=== PATIENT | male | born 1995 | race Caucasian/White ===

== ENCOUNTER 2017-10-05 12:55 | Emergency (ER) | payer OTHER ==
[~2017-10-05] VITALS: Ht 175.3 cm; Wt 65.8 kg
[~2017-10-05 12:55] MED LIST: CYCL10 PO; Mobic15 MG PO; NAPR500 PO; Naprosyn500 MG PO; OSEL75CA PO
== END 2017-10-05 14:20 | disposition home or self-care (01) ==
LOC: ER 12:55
DX: S90.32XA Contusion of left foot, initial encounter (principal); Z87.891 Personal history of nicotine dependence; W22.8XXA Striking against or struck by other objects, initial encounter
CPT/HCPCS: 73630; 99283

== ENCOUNTER → 2023-02-08 | Outpatient (CLI) | payer SELFPAY ==
[~2023-02-08] MED LIST changes: +Augmentin 875-1 EACH PO; +DOC250 PO; +OMEP20ER PO
[2023-02-11 00:08] LABS: HIV AB/P24 AG SCREEN Non Reactive (Non Reactive)
== END | disposition home or self-care (01) ==
LOC: LAB 10:48 → LAB SHORT 10:48
PROVIDERS: Physician Assistant
DX: Z20.9 Contact with and (suspected) exposure to unspecified communicable disease (principal)
CPT/HCPCS: 86592; 86695; 86696; 87389

== ENCOUNTER → 2023-02-08 | Outpatient (CLI) | payer SELFPAY ==
[2023-02-10 04:08] LABS: CHLAMYDIA TRACHOMATIS, NAA Positive (Negative)
== END ==
LOC: LAB SHORT 12:02 → LAB 12:02
PROVIDERS: Physician Assistant
DX: Z20.9 Contact with and (suspected) exposure to unspecified communicable disease (principal)
CPT/HCPCS: 87491; 87591

== ENCOUNTER 2023-10-15 06:16 | Emergency (ER) | payer OTHER ==
[~2023-10-15] VITALS: Ht 175.3 cm; Wt 70.3 kg
[2023-10-15 06:26] VITALS: BP 131/60
[2023-10-15] MEDS ORDERED: IBUP400 PO (07:12)
[2023-10-15] MEDS ORDERED: Robaxin750 MG PO (07:12)
[2023-10-15] MEDS ORDERED: ACET500 PO (07:12)
[2023-10-15] MEDS ORDERED: LIDO700A20 TOP (07:12)
== END 2023-10-15 07:22 | disposition home or self-care (01) ==
LOC: ER 06:16
DX: S29.012A Strain of muscle and tendon of back wall of thorax, initial encounter (principal); R07.81 Pleurodynia; V92.15XA Drowning and submersion due to being thrown overboard by motion of canoe or kayak, initial encounter; Z87.891 Personal history of nicotine dependence
CPT/HCPCS: 71101; 99283-25

== ENCOUNTER → 2024-07-15 | Outpatient (CLI) | payer OTHER ==
[~2024-07-15] MED LIST changes: +ACET500 PO; +IBUP400 PO; +LIDO700A20 TOP; +Robaxin750 MG PO
[2024-07-15 21:07] LABS: Neisseria Gonorrhoea Urine NOT DETECTED (NOT DETECT)
[2024-07-15 23:35] LABS: Chlamydia Trachomatis Urine DETECTED (NOT DETECT)
== END ==
LOC: LAB 15:14 → LAB SHORT 15:14
PROVIDERS: Family Medicine
DX: N34.2 Other urethritis (principal)
CPT/HCPCS: 87491; 87591